=== PATIENT | female | born 1995 ===

== ENCOUNTER 2016-08-02 21:34 | Emergency (ER) | payer BC, OTHER ==
[2016-08-02 21:47] VITALS: BP 130/86; PULSE 88; RESP 16; TEMP 97.9; O2SAT 100
--- NOTE | 2016-08-02 22:04 | ED PDOC ---
HPI: Female Pain Time Seen by Provider: 08/02/16 21:53 Chief Complaint (Nursing): Female Genitourinary Chief Complaint (Provider): vaginal discharge History Per: Patient History/Exam Limitations: no limitations Onset/Duration Of Symptoms: Days (1 month) Current Symptoms Are (Timing): Still Present Additional History Per: Patient Additional Complaint(s): 20 y/o female presents for eval of intermittent vaginal discharge x 1 month. Patient states discharge has foul odor, and appears [id number] in color when present. Denies fever, nausea/vomiting, abdominal/pelvic pain, dysuria, hematuria. Past Medical History Reviewed: Historical Data, Nursing Documentation, Vital Signs Vital Signs: Last Vital Signs Temp 97.9 F 08/02/16 21:44 Pulse 88 08/02/16 21:44 Resp 16 08/02/16 21:44 BP 130/86 08/02/16 21:44 Pulse Ox 100 08/02/16 21:44 - Medical History PMH: Bronchitis - Surgical History Surgical History: Back Surgery - Family History Family History: States: Unknown Family Hx - Home Medications Home Medications: Ambulatory Orders Medication Instructions Recorded Dicyclomine [Bentyl] 10 mg PO TID PRN #10 cap 01/30/16 Ondansetron [Zofran] 4 mg PO Q6H PRN #10 tab 01/30/16 Metronidazole [Flagyl] 500 mg PO BID #14 tab 08/02/16 - Allergies Allergies/Adverse Reactions: Allergies Allergy/AdvReac Type Severity Reaction Status Date / Time No Known Allergies Allergy Verified 09/22/15 00:55 Review of Systems ROS Statement: Except As Marked, All Systems Reviewed And Found Negative Genitourinary Female: Positive for: Vaginal Discharge Physical Exam - Reviewed Nursing Documentation Reviewed: Yes Vital Signs Reviewed: Yes - Physical Exam Appears: Positive for: Well, Non-toxic, No Acute Distress Head Exam: Positive for: ATRAUMATIC, NORMAL INSPECTION, NORMOCEPHALIC Skin: Positive for: Normal Color Eye Exam: Positive for: Normal appearance ENT: Positive for: Normal ENT Inspection Cardiovascular/Chest: Positive for: Regular Rate, Rhythm Respiratory: Positive for: Normal Breath Sounds Gastrointestinal/Abdominal: Positive for: Normal Exam Pelvic Exam: Positive for: External Exam Normal, Speculum Exam Normal, No Cerv. Motion Tender, Other (exam chaperoned by Isaac Aveyr RN). Negative for: Active Bleeding, Cervicitis, Discharge Back: Positive for: Normal Inspection Extremity: Positive for: Normal ROM Neurologic/Psych: Positive for: Alert, Oriented - Laboratory Results Urine POC: Negative Urine dip results: Negative for: Leukocyte Esterase, Blood, Nitrate, Ketones - ECG O2 Sat by Pulse Oximetry: 100 - Progress ED Course And Treament: cultures, urine Patient educated on findings and offered prophylactic treatment for STDs, patient would like that now. Rocephin IM, zithromax PO ordered Patient discharged with rx Flagyl for possible bacterial vaginosis. Advised follow up [facility] 2-3 days. No sexual activity until medication finished. Return to ED for worsening/concerning symptoms. Disposition - Clinical Impression Clinical Impression: Vaginal discharge - Patient ED Disposition Is Patient to be Admitted: No Counseled Patient/Family Regarding: Studies Performed, Diagnosis, Need For Followup, Rx Given - Disposition Disposition: Routine/Home Disposition Time: 22:39 Condition: GOOD Additional Instructions: Follow up with your [facility] in 2-3 days. Take medication as directed. Return to ED for worsening/concerning symptoms. Prescriptions: Metronidazole [Flagyl] 500 mg PO BID #14 tab Instructions: Bacterial Vaginosis (ED), Vaginal Discharge (ED)
[2016-08-02] MEDS ORDERED: cefTRIAXone (Rocephin) 250 mg Inj IM ONE (22:12)
[2016-08-02] MEDS ORDERED: Sterile Water 10 ML IV ONE (22:24)
[2016-08-02] MEDS ORDERED: cefTRIAXone (Rocephin) 250 mg Inj ONE (22:24)
== END 2016-08-02 23:09 | disposition home or self-care (01) ==
LOC: H.ER 21:34
DX: N89.8 Other specified noninflammatory disorders of vagina (principal)
CPT/HCPCS: 81025; 87070; 87491; 87591; 96372; 99283; J0696

== ENCOUNTER 2018-03-21 18:25 | Emergency (ER) | payer BC, OTHER ==
[2018-03-21 18:34] VITALS: RESP 18; O2SAT 100
--- NOTE | 2018-03-21 18:43 | ED PDOC ---
HPI: General Adult Time Seen by Provider: 03/21/18 18:41 Chief Complaint (Nursing): Female Genitourinary Chief Complaint (Provider): vaginal discharge History Per: Patient (22 y/o female here with vaginal discharge ongoing. Denies any dysuria/ foul smell/abdominal pain. Admits she is sexually active and intermittently does not use protection. No h/o STDs.) Past Medical History Reviewed: Historical Data, Nursing Documentation, Vital Signs Vital Signs: Last Vital Signs Temp 97.7 F 03/21/18 18:32 Pulse 88 03/21/18 18:32 Resp 18 03/21/18 18:32 BP 112/77 03/21/18 18:32 Pulse Ox 100 03/21/18 18:32 - Medical History PMH: Bronchitis - Surgical History Surgical History: Back Surgery - Family History Family History: States: Unknown Family Hx - Home Medications Home Medications: Ambulatory Orders Medication Instructions Recorded Dicyclomine [Bentyl] 10 mg PO TID PRN #10 cap 01/30/16 Ondansetron [Zofran] 4 mg PO Q6H PRN #10 tab 01/30/16 Metronidazole [Flagyl] 500 mg PO BID #14 tab 08/02/16 - Allergies Allergies/Adverse Reactions: Allergies Allergy/AdvReac Type Severity Reaction Status Date / Time No Known Allergies Allergy Verified 03/21/18 18:32 Review of Systems ROS Statement: Except As Marked, All Systems Reviewed And Found Negative Genitourinary Female: Positive for: Vaginal Discharge Physical Exam - Reviewed Nursing Documentation Reviewed: Yes Vital Signs Reviewed: Yes - Physical Exam Appears: Positive for: Well, Non-toxic, No Acute Distress Head Exam: Positive for: ATRAUMATIC, NORMAL INSPECTION, NORMOCEPHALIC Skin: Positive for: Normal Color, Warm, DRY Eye Exam: Positive for: EOMI, Normal appearance, PERRL ENT: Positive for: Normal ENT Inspection Neck: Positive for: Normal, Painless ROM Cardiovascular/Chest: Positive for: Regular Rate, Rhythm Respiratory: Positive for: CNT, Normal Breath Sounds Gastrointestinal/Abdominal: Positive for: Normal Exam, Soft Pelvic Exam: Positive for: External Exam Normal, Speculum Exam Normal, Bimanual Exam Normal, No Cerv. Motion Tender, No Masses, Discharge (minimal vaginal discharge not foul smelling.). Negative for: Active Bleeding, Cervicitis Back: Positive for: Normal Inspection Extremity: Positive for: Normal ROM Neurologic/Psych: Positive for: Alert, Oriented - Laboratory Results Urine POC: Negative Urine dip results: Negative for: Leukocyte Esterase, Blood, Nitrate, Ketones, Glucose, Bilirubin, Protein - ECG O2 Sat by Pulse Oximetry: 100 - Progress ED Course And Treament: sent probe for chlamydia/gonorrhea. Patient advised to f/u with [facility] for further evaluation of other STDs. Disposition - Clinical Impression Clinical Impression: Vaginal discharge - Patient ED Disposition Is Patient to be Admitted: No - Disposition Referrals: [facility] [Outside] Disposition: Routine/Home Disposition Time: 18:57 Condition: FAIR Instructions: Vaginal Discharge in Adults
[2018-03-21 19:31] VITALS: BP 107/82; PULSE 84; TEMP 97.9
== END 2018-03-21 19:01 | disposition home or self-care (01) ==
LOC: H.ER 18:25
DX: N89.8 Other specified noninflammatory disorders of vagina (principal)